=== PATIENT | female | born 1980 | race Caucasian/White ===

== ENCOUNTER 2021-09-29 23:09 | Emergency (ER) | payer MEDICAID ==
[~2021-09-29] VITALS: Ht 162.6 cm; Wt 69.9 kg
[2021-09-29 23:14] VITALS: BP 160/90
--- NOTE | 2021-09-29 23:27 | NUR ---
Dr. Gresham examining patient.
[2021-09-29] MEDS ORDERED: diphenhydrAMINE 50 MG/ML VIAL IM ONE (23:45)
--- NOTE | 2021-09-29 23:51 | NUR ---
PT TAKEN TO RADIOLOGY
[2021-09-29 23:53] LABS: BASOPHILS % (AUTO) 0.3 % (0.0-2.0); MONOCYTES # (AUTO) 0.2 K/uL (0.8-1.0); NEUTROPHILS # (AUTO) 0.9 K/uL (1.8-7.7)
[2021-09-29 23:58] LABS: EOSINOPHILS % (AUTO) 0.8 % (0.0-4.0); HEMATOCRIT 42.3 % (36-48); HEMOGLOBIN 13.8 g/dL (12.0-16.0); LYMPHOCYTES # (AUTO) 0.9 K/uL (2.5-16.5); LYMPHOCYTES % (AUTO) 42.5 % (20.5-51.1); MEAN CORPUSCULAR HEMOGLOBIN 26 pg (27-31); MEAN CORPUSCULAR HGB CONC 33 g/dL (33-37); MEAN CORPUSCULAR VOLUME 78.6 fL (80-94); MONOCYTES % (AUTO) 11.4 % (1.7-9.3); PLATELET COUNT (AUTO) 161 K/uL (140-450); RED BLOOD CELL COUNT(AUTO) 5.38 MIL/uL (4.20-5.40); WHITE BLOOD COUNT (AUTO) 2.1 K/uL (4.8-10.8)
--- NOTE | 2021-09-30 00:04 | NUR ---
Patient ambulated to bed 8.
[2021-09-30 00:05] LABS: PROTHROMBIN TIME 15.8 secs (10.8-13.4)
[2021-09-30 00:20] LABS: ALBUMIN 3.7 g/dL (3.4-5.0); ANION GAP 12.3 (8-16); ASPARTATE AMINOTRANSFERASE 33 U/L (15-37); CARBON DIOXIDE 27.6 mmol/L (21-32); CHLORIDE 106 mmol/L (98-107); CREATININE 0.7 mg/dL (0.6-1.3); GFR ARICAN-AMERICAN 117 mL/min (>90); GLUCOSE 86 mg/dL (74-106); POTASSIUM 3.9 mmol/L (3.5-5.1); SODIUM SERUM 142 mmol/L (136-145); TOTAL BILIRUBIN 0.3 mg/dL (0.0-1.0); UREA NITROGEN, BLOOD 22 mg/dL (7-18)
[2021-09-30] MEDS ORDERED: PRED20TA6 PO (00:35)
[2021-09-30] MEDS ORDERED: DIPH25TA53 PO (00:35)
[2021-09-30] MEDS ORDERED: EPIN1KIT31 IM (00:35)
[2021-09-30] MEDS ORDERED: ALBU0.0912 INH (00:35)
--- NOTE | 2021-09-30 00:43 | NUR ---
Dr. Wynn explained results and treatment plans.
[2021-09-30 00:57] VITALS: BP 121/72
--- NOTE | 2021-09-30 00:57 | NUR ---
Patient discharged with v/s stable. Written and verbal after care instructions given and explained. Patient alert, oriented and verbalized understanding of instructions. Ambulatory with steady gait. All questions addressed prior to discharge. ID band removed. Patient advised to follow up with PMD. Rx of Ti Álvarez and Pati CALDWELL MDI given. Patient educated on indication of medication including possible reaction and side effects. Opportunity to ask questions provided and answered.
== END 2021-09-30 00:57 | disposition home or self-care (01) ==
LOC: MED 23:09
DX: L50.0 Allergic urticaria (principal); E03.9 Hypothyroidism, unspecified; I10 Essential (primary) hypertension; E11.9 Type 2 diabetes mellitus without complications; Z88.0 Allergy status to penicillin; Z88.1 Allergy status to other antibiotic agents; Z88.6 Allergy status to analgesic agent; Z88.5 Allergy status to narcotic agent; Z88.8 Allergy status to other drugs, medicaments and biological substances; Z79.891 Long term (current) use of opiate analgesic; Z79.4 Long term (current) use of insulin; Z79.899 Other long term (current) drug therapy; Z85.9 Personal history of malignant neoplasm, unspecified
CPT/HCPCS: 36415; 71045; 80053; 84484; 85025; 85610; 93005; 96372; 99285; J1200